=== PATIENT | male | born 1965 | race Caucasian/White ===

== ENCOUNTER 2020-03-18 11:58 | Emergency (ER) | payer OTHER ==
--- NOTE | 2020-03-18 12:44 | ER Document Report ---
ED Medical Screen (RME) - General Chief Complaint: Dizziness Stated Complaint: DIZZINESS Time Seen by Provider: 03/18/20 12:35 Primary Care Provider: LINDSEY ESPOSITO [Primary Care Provider] - Follow up as needed Information source: Patient Notes: Patient presents stating that he has had dizziness for the past 7 months that has become daily for the past month. Patient states that he has had near falls in which he is able to catch himself before he hits the ground. Patient denies any chest pain shortness of breath nausea or vomiting. Patient states when he becomes dizzy his vision crosses, he has pressure behind his eyes and bilateral neck discomfort. Patient also complains of pain between his shoulder blades. I have greeted and performed a rapid initial assessment of this patient. A comprehensive ED assessment and evaluation of the patient, analysis of test results and completion of the medical decision making process will be conducted by additional ED providers. - Related Data Allergies/Adverse Reactions: No Known Allergies Allergy (Verified 03/18/20 12:28) Past Medical History - Social History Chew tobacco use (# tins/day): No Frequency of alcohol use: Social Drug Abuse: None - Immunizations Hx Diphtheria, Pertussis, Tetanus Vaccination: Yes Physical Exam - Vital signs Vitals: Temp Pulse Resp BP Pulse Ox 98.3 F 84 16 148/82 H 98 03/18/20 12:03 03/18/20 12:03 03/18/20 12:03 03/18/20 12:03 03/18/20 12:03 - Cardiovascular Rhythm: Regular Heart sounds: S1 appreciated, S2 appreciated - Neurological Neuro grossly intact: Yes Cognition: Normal [place] Coma Scale Eye Opening: Spontaneous [place] Coma Scale Verbal: Oriented [place] Coma Scale Motor: Obeys Commands [place] Coma Scale Total: 15 Course - Vital Signs Vital signs: Temp Pulse Resp BP Pulse Ox 98.3 F 84 16 148/82 H 98 03/18/20 12:03 03/18/20 12:03 03/18/20 12:03/18/20 12:03/18/20 12:03 Doctor's Discharge - Discharge Referrals: LINDSEY ESPOSITO [Primary Care Provider] - Follow up as needed
--- NOTE | 2020-03-18 13:29 | RADIOLOGY REPORT (SQ) ---
EXAM DESCRIPTION: CHEST 2 VIEWS IMAGES COMPLETED DATE/TIME: 03/18/2020 1:17 pm REASON FOR STUDY: dizzy COMPARISON: Chest x-ray 09/02/2011. EXAM PARAMETERS: NUMBER OF VIEWS: two views TECHNIQUE: Digital Frontal and Lateral radiographic views of the chest acquired. RADIATION DOSE: NA LIMITATIONS: none FINDINGS: LUNGS AND PLEURA: No consolidation, pneumothorax or pleural effusion. MEDIASTINUM AND HILAR STRUCTURES: No masses or contour abnormalities. HEART AND VASCULAR STRUCTURES: Heart normal size. No evidence for failure. BONES: Multilevel degenerative changes at the spine. HARDWARE: None in the chest. IMPRESSION: NO ACUTE RADIOGRAPHIC FINDING IN THE CHEST. TECHNICAL DOCUMENTATION: JOB ID: [id number] [id number] 2010 [employer]- All Rights Reserved Reading location - IP/workstation name: [email or web address]
--- NOTE | 2020-03-18 13:57 | RADIOLOGY REPORT (SQ) ---
EXAM DESCRIPTION: CT HEAD WITHOUT IMAGES COMPLETED DATE/TIME: 03/18/2020 1:42 pm REASON FOR STUDY: dizzy, falls COMPARISON: MRI head 01/18/2010. TECHNIQUE: Axial images acquired through the brain without intravenous contrast. Images reviewed wi th bone, brain and subdural windows. Images stored on PACS. All CT scanners at this facility use dose modulation, iterative reconstruction, and/or weight based d osing when appropriate to reduce radiation dose to as low as reasonably achievable (ALARA). [facility]: Dose Right [facility]: CareDose [facility]: Dose Right [facility]: Teradose 4D [facility]: Smart Complexa RADIATION DOSE: CT Rad equipment meets quality standard of care and radiation dose reduction techniq ues were employed. CTDIvol: 53.2 mGy. DLP: 991 mGy-cm. mGy. LIMITATIONS: None. FINDINGS: VENTRICLES: Normal size and contour. CEREBRUM: Redemonstration of fat containing lesion at the corpus callosum, previously described as th e large pericallosal lipoma. No mass effect. No hemorrhage. No midline shift. Normal mantilla/white m atter differentiation. No evidence for acute territorial infarction. CEREBELLUM: No mass effect. No hemorrhage. No alteration of density. No evidence for acute infarct ion. EXTRAAXIAL SPACES: No fluid collections. ORBITS AND GLOBE: Symmetrical contour of the globes. CALVARIUM: No depressed skull fracture. PARANASAL SINUSES: Air-fluid level with reticulations at the left maxillary sinus. There is partial opacification of the ethmoid air cells. SOFT TISSUES: No hematoma. IMPRESSION: 1. Known large pericallosal lipoma. No acute intracranial hemorrhage or depressed jeniffer rial fracture. 2. Air-fluid level with reticulations at the left maxillary sinus, suggestive of acute sinusitis. EVIDENCE OF ACUTE STROKE: NO. COMMENT: Quality ID # [id number]: Final reports with documentation of one or more dose reduction techniques (e.g., Automated exposure control, adjustment of the mA and/or kV according to patient size, use of iterative reconstruction technique) TECHNICAL DOCUMENTATION: JOB ID: [id number] [place]-[id number] 2010 [employer]- All Rights Reserved Reading location - IP/workstation name: [email or web address]
[2020-03-18 14:19] LABS: ABSOLUTE BASOPHILS # (AUTO) 0.1 10^3/uL (0.0-0.2); ABSOLUTE EOSINOPHILS # (AUTO) 0.2 10^3/uL (0.0-0.6); ABSOLUTE LYMPHOCYTES (AUTO) 2.3 10^3/uL (0.5-4.7); ABSOLUTE NEUT (AUTO) 9.8 10^3/uL (1.7-8.2); BASOPHILS % (AUTO) 0.4 % (0-2); EOSINOPHILS % (AUTO) 1.1 % (0-6); HEMATOCRIT 44.9 % (37.9-51.0); HEMOGLOBIN 15.2 g/dL (13.5-17.0); LYMPHOCYTES % (AUTO) 17.4 % (13-45); MEAN CORPUSCULAR HEMOGLOBIN 30.8 pg (27.0-33.4); MEAN CORPUSCULAR HGB CONC 33.9 g/dL (32.0-36.0); MEAN CORPUSCULAR VOLUME 91 fl (80-97); MONOCYTES % (AUTO) 7.3 % (3-13); PLATELET COUNT 276 10^3/uL (150-450); RED BLOOD COUNT 4.93 10^6/uL (4.35-5.55); RED CELL DISTRIBUTION WIDTH 14.5 % (11.5-14.0); SEGMENTED NEUTROPHILS % (AUTO) 73.8 % (42-78); TOTAL CELLS COUNTED % (AUTO) 100 %; WHITE BLOOD COUNT 13.2 10^3/uL (4.0-10.5)
[2020-03-18 14:29] LABS: ALBUMIN 4.7 g/dL (3.5-5.0); ALKALINE PHOSPHATASE 91 U/L (38-126); ANION GAP 6 (5-19); ASPARTATE AMINO TRANSFERASE 29 U/L (17-59); BILIRUBIN,DIRECT 0.1 mg/dL (0.0-0.4); BILIRUBIN,TOTAL 0.8 mg/dL (0.2-1.3); BLOOD UREA NITROGEN 20 mg/dL (7-20); CALCIUM 10.1 mg/dL (8.4-10.2); CARBON DIOXIDE 30 mmol/L (22-30); CHLORIDE 102 mmol/L (98-107); POTASSIUM 4.2 mmol/L (3.6-5.0); TOTAL PROTEIN 7.5 g/dL (6.3-8.2)
[2020-03-18 14:33] LABS: GLUCOSE 45 mg/dL (75-110)
--- NOTE | 2020-03-18 16:32 | ER Document Report ---
ED General - General Chief Complaint: Dizziness Stated Complaint: DIZZINESS Time Seen by Provider: 03/18/20 12:35 Primary Care Provider: LINDSEY ESPOSITO [NO LOCAL MD] - Follow up as needed - HPI Notes: Patient is a 55-year-old male comes to the emergency department for evaluation of dizziness. Is been ongoing for several months. He states that he gets very lightheaded, feels as if he is going to pass out, but has not had a full-blown syncopal episode. He denies any vertiginous symptoms. He states he has had a cough and sinus congestion this been ongoing for at least 4 to 6 weeks. No fevers, but he has had pain surrounding his eyes, and in the ethmoid sinus area as well. He denies any ear pain. No fevers. He admits that he does not have great nutrition. He states today he only had a small amount of pretzels and water when he started feeling poorly and came to the emergency department for further evaluation. He denies any pain at this time. - Related Data Allergies/Adverse Reactions: No Known Allergies Allergy (Verified 03/18/20 12:28) Home Medications: OTC ibuprofen as needed Past Medical History - General Information source: Patient - Social History Smoking Status: Current Every Day Smoker Chew tobacco use (# tins/day): No Frequency of alcohol use: Social Drug Abuse: None Family History: Other - Patient does not talk to parents, unknown - Medical History Medical History: Negative Surgical Hx: Negative - Immunizations Hx Diphtheria, Pertussis, Tetanus Vaccination: Yes Review of Systems - Review of Systems Constitutional: See HPI EENT: See HPI Cardiovascular: See HPI -: Yes All other systems reviewed and negative Physical Exam - Vital signs Vitals: Temp Pulse Resp BP Pulse Ox 98.3 F 84 16 148/82 H 98 03/18/20 12:03 03/18/20 12:03 03/18/20 12:03 03/18/20 12:03 03/18/20 12:03 - Notes Notes: Vital signs reviewed, please refer to chart. Head is normocephalic, atraumatic. Pupils equal round, reactive to light. He does have some mild tenderness over bilateral maxillary sinuses, ethmoid sinus. TMs are pearly mantilla with good light reflex. Neck is supple without meningismus. Heart is regular rate and rhythm. Lungs are clear to auscultation bilaterally. Abdomen is soft, nontender, normoactive bowel sounds throughout. Extremities without cyanosis, clubbing. Posterior calves are nontender. Peripheral pulses are equal. Skin is warm and dry. Patient is awake, alert, oriented x3. Cranial nerves II - XII are grossly intact without focal neurological deficits. Strength is plus 5 out of 5 bilateral upper and lower extremities. Sensation is intact. Reflexes symmetrical. Intact [id number], rapid alternating movements, [id number]. Course - Re-evaluation Re-evalutation: 03/18/20 16:30 Patient presents to the emergency department for evaluation of dizziness. On evaluation here he is found to be hypoglycemic. He is given juice, feels somewhat better. I do not believe this is the sole etiology of his dizziness. He has had sinus congestion for 4 to 6 weeks, findings on CT consistent with acute sinusitis. He has sinus tenderness. I will go ahead and treat him with Augmentin for sinusitis as well, to see if this helps. I explained to the patient he needs to quit smoking. He needs to follow-up closely with primary care and investigate further possible etiologies of his hyperglycemia. I explained to him that he needs to start eating more regularly. He voiced understanding to all of this information. He is to return to the emergency department with worsening or new concerning symptoms of any sort. - Vital Signs Vital signs: Temp Pulse Resp BP Pulse Ox 98.3 F 74 14 178/82 H 100 03/18/20 12:03 03/18/20 15:00 03/18/20 15:01 03/18/20 15:01 03/18/20 15:01 - Laboratory Result Diagrams: 03/18/20 13:00 03/18/20 13:00 Laboratory results interpreted by me: 03/18/20 03/18/20 13:00 13:00 WBC 13.2 H RDW 14.5 H Absolute Neuts (auto) 9.8 H Glucose 45 L - Diagnostic Test Radiology reviewed: Reports reviewed Radiology results interpreted by me: 03/18/20 16:29 Chest X-Ray 03/18/20 12:42 IMPRESSION: NO ACUTE RADIOGRAPHIC FINDING IN THE CHEST. Head CT 03/18/20 12:42 IMPRESSION: 1. Known large pericallosal lipoma. No acute intracranial hemorrhage or depressed calvarial fracture. 2. Air-fluid level with reticulations at the left maxillary sinus, suggestive of acute sinusitis. EVIDENCE OF ACUTE STROKE: NO. - EKG Interpretation by Me Additional EKG results interpreted by me: 03/18/20 16:29 Sinus mechanism with a rate of 81 bpm. Normal axis and intervals. No acute ST changes concerning for ischemia or infarction. No old studies immediately available for comparison. Discharge - Discharge Clinical Impression: Dizziness, Hypoglycemia Acute sinusitis Qualifiers: Sinusitis location: unspecified location Recurrence: not specified as recurrent Qualified Code(s): J01.90 - Acute sinusitis, unspecified Condition: Stable Disposition: HOME, SELF-CARE Instructions: Dizziness ([facility]), Hypoglycemia ([facility]), Sinusitis ([facility]) Additional Instructions: Eat small frequent meals as discussed. Try to quit smoking. Take all the antibiotic as prescribed until gone. You need to follow-up with primary care for further evaluation. If you develop worsening or new concerning symptoms of any sort, please return immediately to the emergency department for reevaluation. Forms: Smoking Cessation Education Referrals: LINDSEY ESPOSITO [NO LOCAL MD] - Follow up as needed KESHAV BROOKS MD [ACTIVE STAFF] - Follow up as needed
[2020-03-18 16:56] VITALS: BP 124/98
--- NOTE | 2020-03-18 18:32 | EKG REPORT ---
SEVERITY:- NORMAL ECG - SINUS RHYTHM : Confirmed by: Danielle Manning 18-Mar-2020 18:31:06
== END 2020-03-18 16:43 | disposition home or self-care (01) ==
LOC: ER 11:58
DX: J01.90 Acute sinusitis, unspecified (principal); R42 Dizziness and giddiness; E16.2 Hypoglycemia, unspecified; R05 Cough; R09.81 Nasal congestion; F17.200 Nicotine dependence, unspecified, uncomplicated
CPT/HCPCS: 36415; 70450; 71046; 80053; 82962; 83735; 84484; 85025; 93005; 93010; 99284